=== PATIENT | female | born 1980 | race American Indian/Alaskan Native ===

== ENCOUNTER 2021-08-09 21:05 | Emergency (ER) | payer SELFPAY ==
[2021-08-09] MEDS ORDERED: HYDROcodone/ACETAMINOPHEN 5-325 MG TAB PO ONE (22:19)
[2021-08-09 22:52] LABS: Basophils % (Auto) 0.4 % (0.0-1.8); Eosinophils # (Auto) 0.3 K/mm3 (0.0-0.4); Eosinophils % (Auto) 3.4 % (0.0-4.3); Hematocrit 36.9 % (30.3-42.9); Hemoglobin 11.8 gm/dl (10.1-14.3); Lymphocytes # (Auto) 3.7 K/mm3 (1.2-5.4); Lymphocytes % (Auto) 48.3 % (13.4-35.0); Mean Corpuscular HGB Conc 32 % (30-34); Mean Corpuscular Volume 89 fl (79-97); Monocytes # (Auto) 0.7 K/mm3 (0.0-0.8); Monocytes % (Auto) 8.9 % (0.0-7.3); Platelet Count 319 K/mm3 (140-440); Red Blood Count 4.13 M/mm3 (3.65-5.03)
--- NOTE | 2021-08-09 22:56 | XRay Report ---
EXAMINATION: XR tibia fibula 2V LT, INDICATION / CLINICAL INFORMATION: LLE swelling pain COMPARISON: None available. FINDINGS: BONES / JOINT(S): No acute fracture or subluxation. SOFT TISSUES: Mild nonspecific soft tissue swelling of the left foreleg with diffuse reticulation of the subcutaneous tissues. Findings may reflect cellulitis in the appropriate clinical setting. ADDITIONAL FINDINGS: None. IMPRESSION: 1. No acute osseous findings. 2. Mild diffuse soft tissue swelling and subcutaneous stranding of the left foreleg. This is nonspeci fic though may reflect cellulitis in the appropriate clinical setting. Signer Name: Rudy Leyva MD Signed: 08/09/2021 10:51 PM Workstation Name: [id number]
--- NOTE | 2021-08-09 23:00 | Emergency Department Report ---
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 Patient states the pain originated in left anterior knee and radiated to lower extremity now with pain and swelling worsening for the past 3 days. 3 days. There is pain with dorsiflexion. There is no numbness or tingling no paralysis. No fall injury or trauma. There is no open wound. Mild left anterior lower extremity erythema. Patient is amatory with with mild limp. Patient has no history of DVT or PE. Denies other history. Patient is non-smoker. No chest pain, dizziness or lightheadedness. Severity scale (0 -10): 2 - Related Data Previous Rx's Medication Instructions Recorded Last Taken Type lisinopriL [Zestril TAB] 10 mg PO QDAY #60 tablet 07/31/14 11/19/14 Rx 10 mg Butalb/Acetamin/Caff 50-325-40 1 each PO Q4H PRN #14 tablet 11/19/14 Unknown Rx [Fioricet] lisinopriL [Zestril TAB] 20 mg PO QDAY #60 tablet 11/19/14 Unknown Rx Meloxicam [Mobic] 7.5 mg PO QDAY #30 tablet 02/19/16 Unknown Rx traMADoL [Ultram] 50 mg PO Q6HR PRN #20 tablet 02/19/16 Unknown Rx cephALEXin [Keflex] 500 mg PO Q8HR 7 Days #21 cap 08/09/21 Unknown Rx traMADoL [Ultram] 50 mg PO Q6HR PRN #12 tablet 08/09/21 Unknown Rx Allergies Allergy/AdvReac Type Severity Reaction Status Date / Time No Known Allergies Allergy Verified 11/19/14 17:32 ED Review of Systems ROS: Stated complaint: L LEG EDEMA/DISCOLORATION Other details as noted in HPI Constitutional: denies: chills, fever Eyes: denies: eye pain, eye discharge, vision change ENT: denies: ear pain, throat pain Respiratory: denies: cough, shortness of breath, wheezing Cardiovascular: denies: chest pain, palpitations Endocrine: no symptoms reported Gastrointestinal: denies: abdominal pain, nausea, diarrhea Genitourinary: denies: urgency, dysuria, discharge Musculoskeletal: other (LLE Pain and swelling ) Skin: as per HPI Neurological: denies: headache, weakness, paresthesias Psychiatric: denies: anxiety, depression Hematological/Lymphatic: denies: easy bleeding, easy bruising ED Past Medical Hx - Past Medical History Hx Hypertension: Yes (no meds) Additional medical history: Childbirth x 3 - Surgical History Hx Cholecystectomy: Yes (2011) Additional Surgical History: TUBAL LIGATION - Social History Smoking Status: Current Every Day Smoker Substance Use Type: None - Medications Home Medications: Home Medications Medication Instructions Recorded Confirmed Last Taken Type lisinopriL [Zestril TAB] 10 mg PO QDAY #60 tablet 07/31/14 11/19/14 11/19/14 Rx 10 mg Butalb/Acetamin/Caff 50-325-40 1 each PO Q4H PRN #14 tablet 11/19/14 Unknown Rx [Fioricet] lisinopriL [Zestril TAB] 20 mg PO QDAY #60 tablet 11/19/14 Unknown Rx Meloxicam [Mobic] 7.5 mg PO QDAY #30 tablet 02/19/16 Unknown Rx traMADoL [Ultram] 50 mg PO Q6HR PRN #20 tablet 02/19/16 Unknown Rx cephALEXin [Keflex] 500 mg PO Q8HR 7 Days #21 cap 08/09/21 Unknown Rx traMADoL [Ultram] 50 mg PO Q6HR PRN #12 tablet 08/09/21 Unknown Rx ED Physical Exam - General Limitations: No Limitations General appearance: alert, in no apparent distress - Head Head exam: Present: atraumatic, normocephalic - Eye Eye exam: Present: normal appearance, EOMI Pupils: Present: normal accommodation - ENT ENT exam: Present: mucous membranes moist - Neck Neck exam: Present: normal inspection, full ROM. Absent: tenderness - Respiratory Respiratory exam: Present: normal lung sounds bilaterally. Absent: respiratory distress, wheezes, rales, rhonchi, stridor, chest wall tenderness - Cardiovascular Cardiovascular Exam: Present: regular rate, normal rhythm, normal heart sounds. Absent: systolic murmur, diastolic murmur, rubs, gallop - GI/Abdominal GI/Abdominal exam: Present: soft, normal bowel sounds. Absent: distended, tenderness, bruit, hernia - Rectal Rectal exam: Present: deferred - Extremities Exam Extremities exam: Present: full ROM, tenderness, calf tenderness - Expanded Lower Extremity Exam Left Lower Leg exam: Present: full ROM, tenderness, swelling, erythema, Gissell's sign. Absent: abrasion, laceration, ecchymosis, deformity, crepidus, dislocation, palpable cord Ankle exam: Present: full ROM, swelling. Absent: tenderness, crepidus, erythema, anterior draw sign Foot/Toe exam: Present: full ROM, swelling. Absent: tenderness, abrasion, laceration, ecchymosis, deformity, crepidus Neuro vascular tendon exam: Absent: pulse deficit, motor deficit, sensory deficit, tendon deficit Gait: Positive: observed and limited by pain - Back Exam Back exam: Present: normal inspection, full ROM. Absent: CVA tenderness (R), CVA tenderness (L) - Neurological Exam Neurological exam: Present: alert, oriented X3, CN II-XII intact, reflexes normal. Absent: motor sensory deficit - Expanded Neurological Exam Expanded Patient oriented to: Present: person, place, time Speech: Present: fluid speech Motor strength exam: RUE: 5, LUE: 5, RLE: 5, LLE: 5 DTR: knee (R): 1+, knee (L): 1+ Best Eye Response (Debbie): (4) open spontaneously Best Motor Response ([place]): (6) obeys commands Best Verbal Response (Debbie): (5) oriented Debbie Total: 15 - Psychiatric Psychiatric exam: Present: normal affect, normal mood - Skin Skin exam: Present: warm, dry, intact, erythema (left anterior lower extrem ). Absent: rash ED Course Vital Signs 08/09/21 08/09/21 21:15 21:16 Temperature 98.5 F Pulse Rate 86 Respiratory 16 Rate Blood Pressure 195/130 [Left] O2 Sat by Pulse 100 Oximetry ED Medical Decision Making - Lab Data Result diagrams: 08/09/21 22:26 08/09/21 22:26 Labs 08/09/21 08/09/21 22:26 22:26 WBC 7.6 RBC 4.13 Hgb 11.8 Hct 36.9 MCV 89 MCH 29 MCHC 32 RDW 15.0 Plt Count 319 Lymph % (Auto) 48.3 H [place] % (Auto) 8.9 H Eos % (Auto) 3.4 Baso % (Auto) 0.4 Lymph # (Auto) 3.7 [place] # (Auto) 0.7 Eos # (Auto) 0.3 Baso # (Auto) 0.0 Seg Neutrophils % 39.0 L Seg Neutrophils # 3.0 Sodium 144 Potassium 3.7 Chloride 106.9 Carbon Dioxide 27 Anion Gap 14 BUN 7 Creatinine 0.6 Estimated GFR > 60 BUN/Creatinine Ratio 12 Glucose 101 H Calcium 8.9 Total Bilirubin 0.30 AST 12 ALT 7 Alkaline Phosphatase 103 Total Protein 6.9 Albumin 3.9 Albumin/Globulin Ratio 1.3 - Radiology Data Radiology results: report reviewed, image reviewed EXAMINATION: XR tibia fibula 2V LT, INDICATION / CLINICAL INFORMATION: LLE swelling pain COMPARISON: None available. FINDINGS: BONES / JOINT(S): No acute fracture or subluxation. SOFT TISSUES: Mild nonspecific soft tissue swelling of the left foreleg with diffuse reticulation of the subcutaneous tissues. Findings may reflect cellulitis in the appropriate clinical setting. ADDITIONAL FINDINGS: None. IMPRESSION: 1. No acute osseous findings. 2. Mild diffuse soft tissue swelling and subcutaneous stranding of the left foreleg. This is nonspecific though may reflect cellulitis in the appropriate clinical setting. Signer Name: Erasto Luther MD Signed: 08/09/2021 10:51 PM Workstation Name: [id number] Transcribed By: BHANU Dictated By: ERASTO LUTHER MD Electronically Authenticated By: ERASTO LUTHER MD Signed Date/Time: 08/09/212250 DUPLEX DOPPLER LOWER EXTREMITY VEINS, LEFT INDICATION / CLINICAL INFORMATION: r/o DVT. TECHNIQUE: Duplex doppler imaging was performed through the veins of the left lower extremity using venous compression and other maneuvers. COMPARISON: None available. FINDINGS: LEFT COMMON FEMORAL VEIN: Negative. LEFT FEMORAL VEIN: Negative. LEFT POPLITEAL VEIN: Negative. LEFT CALF VEINS: Negative. ADDITIONAL FINDINGS: None. IMPRESSION: 1. No sonographic evidence for DVT in the left lower extremity. Signer Name: Erasto Luther MD Signed: 08/09/2021 11:34 PM Workstation Name: [id number] Transcribed By: BHANU Dictated By: ERASTO LUTHER MD Electronically Authenticated By: ERASTO LUTHER MD Signed Date/Time: 08/09/21 5244 - Medical Decision Making X-ray no fracture diffuse soft tissue swelling, ultrasound left lower extremity normal no DVT, labs normal CBC and CMP. Plan DC to home with prescriptions, diagnosis cellulitis left lower extremity take medications as prescribed, follow-up with primary care doctor in 2 to 3 days. Turn to emergency department should symptoms worsen. Critical care attestation.: If time is entered above; I have spent that time in minutes in the direct care of this critically ill patient, excluding procedure time. ED Disposition Clinical Impression: Cellulitis of left leg Disposition: HOME / SELF CARE / HOMELESS Is pt being admited?: No Does the pt Need Aspirin: No Condition: Stable Instructions: Cellulitis, Adult, [id number] Additional Instructions: Take medications as prescribed, follow-up with your doctor in 2 to 3 days. Return to emergency department should symptoms worsen. Prescriptions: cephALEXin [Keflex] 500 mg PO Q8HR 7 Days #21 cap traMADoL [Ultram] 50 mg PO Q6HR PRN #12 tablet PRN Reason: Pain Referrals: CHAR HUNTER MD [Staff Physician] - 3-5 Days Forms: Work/School Release Form(ED) Time of Disposition: 23:52
[2021-08-09 23:10] LABS: Alanine Aminotransferase 7 units/L (7-56); Albumin 3.9 g/dL (3.9-5); BUN/Creatinine Ratio 12; Blood Urea Nitrogen 7 mg/dL (7-17); Calcium 8.9 mg/dL (8.4-10.2); Hemolysis Index 2
--- NOTE | 2021-08-09 23:38 | Vascular Lab Report ---
DUPLEX DOPPLER LOWER EXTREMITY VEINS, LEFT INDICATION / CLINICAL INFORMATION: r/o DVT. TECHNIQUE: Duplex doppler imaging was performed through the veins of the left lower extremity using venous compr ession and other maneuvers. COMPARISON: None available. FINDINGS: LEFT COMMON FEMORAL VEIN: Negative. LEFT FEMORAL VEIN: Negative. LEFT POPLITEAL VEIN: Negative. LEFT CALF VEINS: Negative. ADDITIONAL FINDINGS: None. IMPRESSION: 1. No sonographic evidence for DVT in the left lower extremity. Signer Name: Rudy Leyva MD Signed: 08/09/2021 11:34 PM Workstation Name: [id number]
[2021-08-10 00:28] VITALS: BP 156/97
== END 2021-08-10 00:20 | disposition home or self-care (01) ==
LOC: ED 21:05
DX: L03.116 Cellulitis of left lower limb (principal); Z79.899 Other long term (current) drug therapy
CPT/HCPCS: 36415; 80053; 85025; 99284